=== PATIENT | female | born 1955 | race Caucasian/White ===

== ENCOUNTER 2023-12-22 15:17 | Emergency (ER) | payer MEDICARE, SELFPAY ==
[2023-12-22 15:19] VITALS: BP 147/82
--- NOTE | 2023-12-22 16:34 | ED.MUSCINJ ---
HPI-Injury
General
Chief Complaint: Musculo-Skeletal Complaint
Source: patient and spouse
Exam Limitations: none
Time Seen by Provider: 12/22/23 15:43
Nursing documentation reviewed up to this point in time: agreed with
Travel History
Have you had any contact with someone who has COVID-19?: No
Do you have any symptoms of coronavirus? Fever > 100 degrees, chills, cough, shortness of breath, sore throat, loss of taste or smell, muscle aches, or headache?: No
History of Present Illness-Injury
Initial Injury comments:
68-year-old female with no significant past medical history was walking in the park today with her when she slipped on wet [place]man injuring her right wrist. She denies hitting her head or any other injury. With no significant past medical
history
Past History
Past History
ED Past Medical History: None
ED Past Surgical History: None
Social History
Tobacco: Non-smoker
Alcohol: None
Personal:
Living: with family
Employment: Retired
Review of Systems
Review of Systems
Allergies reviewed?: Yes
All Other Systems: ROS reviewed and negative except as documented in HPI and ROS
Musculoskeletal: Reports other (Pain and swelling right wrist); Denies neck pain or back pain
Musculoskeletal Injury Exam
Musculoskeletal Injury Exam
Right Wrist:
Pain with Movement?: Moderate
Tender to palpation?: Moderate
Soft tissue swelling?: Mild
External deformity and angulation?: None
Joint instability?: No
Malalignment/deformity?: No
Range of motion: Limited
Distal skin color and temperature: normal-warm & good color
Capillary Refill: normal
Normal distal neurovascular exam?: Yes
Phy Exam
Physical Exam
Physical Exam:
PHYSICAL EXAMINATION:
General: no apparent distress, not acutely ill
Neuro: alert and oriented.
Psychiatric: well kept. interactive and cooperative
Musculoskeletal: Moves with ease
Skin: Warm, pink.
Injury Course
Orders/Labs/Results
Orders:
Orders
12/22/23 15:25
Wrist, Right 3 Views [CR Wrist - Right Min 3 Views] Urgent
Comment:
Reason For Exam: pain injury
12/22/23 16:31
Volar Right-Treatment ONCE
12/22/23 16:39
Sling Right-Treatment ONCE
Procedures
Splint Check
Splint checked by provider?: Yes
Circulation/Movement/Sensation post splint application: brisk cap refill and full sensation
MDM/Problems Addressed
MDM/Problems Addressed:
68-year-old female with no significant past medical history was walking in the park today with her when she slipped on wet newman injuring her right wrist. She denies hitting her head or any other injury. With no significant past medical
history
X-ray right wrist shows a nondisplaced distal radius fracture which is intra-articular.
*Critical Care Note
Total Time (30-74mins, 75-104mins- exclusive of procedures): Not Applicable
ED Attending Note
-
Portions of this chart may have been created with voice recognition software.� Occasional wrong word or��sound alike� substitutions may have occurred due to the inherent limitations of voice recognition software.
Discharge Plan
Departure
Patient Disposition: Home (Routine Discharge)
Date of Disposition: 12/22/23
Time of Disposition: 16:37
Patient with high blood pressure during this ER visit?: No
Condition: Good
Discharge Problem:
Fall from slip, trip, or stumble, Fracture of distal end of right radius
Instructions: Wrist Fracture (DC), Using Cold for Pain
Referrals:
Joshua Spain MD [Active] - Next open appointment
Activity Restrictions/Additional Instructions:
As we discussed, keep the splint on and wear the sling when up and around until further instructed by the orthopedic doctor.
Call the orthopedic doctors office tomorrow and make next available appointment.
Tylenol or ibuprofen as needed for pain.
Interventions
Interventions:
*Risk Screen - Suicide Last Done: 12/22/23 16:51
*General Assessment Last Done: 12/22/23 16:05
*Neglect/Abuse Screening Last Done: 12/22/23 16:05
*ED COVID-19 Vaccine History Last Done: 12/22/23 15:19
*Nursing Disposition Last Done: 12/22/23 16:53
ED-Musculoskeletal Assessment Last Done: 12/22/23 15:48
Discharge Date and Time
Discharge Date/Time: 12/22/23 16:54
[2023-12-22 16:51] VITALS: BP 151/81
[2023-12-22 16:53] VITALS: BP 151/81
== END 2023-12-22 16:54 | disposition home or self-care (01) ==
LOC: EMR 15:17
PROVIDERS: EMERGENCY PHYSICIAN Emergency Medicine; FAMILY PHYSICIAN Physician Assistant Medical
DX: S52.571A Other intraarticular fracture of lower end of right radius, initial encounter for closed fracture (principal); W01.0XXA Fall on same level from slipping, tripping and stumbling without subsequent striking against object, initial encounter
CPT/HCPCS: 99283; 29125; 73110

== ENCOUNTER 2024-02-18 16:45 | Outpatient (RCR) | payer MEDICARE, SELFPAY | END 2024-02-18 23:59 | disposition home or self-care (01) | LOC: ROT 16:45 | PROVIDERS: ATTENDING PHYSICIAN Physician Assistant; FAMILY PHYSICIAN Physician Assistant Medical | DX: S52.571D Other intraarticular fracture of lower end of right radius, subsequent encounter for closed fracture with routine healing (principal); Z73.6 Limitation of activities due to disability | CPT/HCPCS: 97022; 97110; 97140; 97166; 97535 ==

== ENCOUNTER 2024-03-19 13:14 | Outpatient (RCR) | payer MEDICARE, SELFPAY | END 2024-03-19 23:59 | disposition home or self-care (01) | LOC: ROT 13:14 | PROVIDERS: ATTENDING PHYSICIAN Physician Assistant; FAMILY PHYSICIAN Physician Assistant Medical | DX: S52.571D Other intraarticular fracture of lower end of right radius, subsequent encounter for closed fracture with routine healing (principal); Z73.6 Limitation of activities due to disability | CPT/HCPCS: 97010; 97022; 97110; 97140 ==

== ENCOUNTER 2024-04-13 15:17 | Outpatient (RCR) | payer MEDICARE, SELFPAY | END 2024-04-13 23:59 | disposition home or self-care (01) | LOC: ROT 15:17 | PROVIDERS: ATTENDING PHYSICIAN Physician Assistant; FAMILY PHYSICIAN Physician Assistant Medical | DX: S52.571D Other intraarticular fracture of lower end of right radius, subsequent encounter for closed fracture with routine healing (principal); X58.XXXD Exposure to other specified factors, subsequent encounter | CPT/HCPCS: 97010; 97022; 97110; 97140; 97535 ==

== ENCOUNTER 2024-04-27 09:40 | Outpatient (RCR) | payer MEDICARE, SELFPAY | END 2024-04-27 23:59 | disposition home or self-care (01) | LOC: ROT 09:40 | PROVIDERS: ATTENDING PHYSICIAN Physician Assistant; FAMILY PHYSICIAN Physician Assistant Medical | DX: S52.571D Other intraarticular fracture of lower end of right radius, subsequent encounter for closed fracture with routine healing (principal); X58.XXXD Exposure to other specified factors, subsequent encounter | CPT/HCPCS: 97010; 97022; 97110; 97140 ==

== ENCOUNTER → 2025-02-25 13:26 | Outpatient (REF) | payer MEDICARE, OTHER, SELFPAY | LOC: WDC 13:26 | PROVIDERS: ATTENDING PHYSICIAN Physician Assistant Medical | DX: M81.0 Age-related osteoporosis without current pathological fracture (principal); Z12.31 Encounter for screening mammogram for malignant neoplasm of breast | CPT/HCPCS: 77063; 77067 ==